=== PATIENT | female | born 1995 | race Asian ===

== ENCOUNTER 2023-12-04 14:46 | Inpatient (IN) | payer OTHER ==
[~2023-12-04] VITALS: Ht 162.6 cm; Wt 103.4 kg
[2023-12-04 15:24] VITALS: BP 123/62; PULSE 62; RESP 20; TEMP 98.4; O2SAT 98
[2023-12-04 15:25] VITALS: O2SAT 98
[2023-12-04] MEDS: NACL 0.9% 1,000 ML IV ONE ×2 (15:50→22:40)
[2023-12-04] MEDS: ONDANSETRON 4 MG/2 ML VIAL IVP ONE (15:51)
[2023-12-04] MEDS: KETOROLAC 30 MG/ML VIAL IVP ONE (15:51)
[2023-12-04] MEDS: MORPHINE SULFATE 4 MG/ML SYR IVP ONE ×2 (15:51→18:26)
[2023-12-04 15:55] LABS: BASOPHILS % (AUTO) 0.3 % (0.0-2.0); EOSINOPHILS # (AUTO) 0.2 K/uL (0-0.4); EOSINOPHILS % (AUTO) 1.1 % (0.0-4.0); HEMATOCRIT 38.9 % (36-48); HEMOGLOBIN 13.6 g/dL (12.0-16.0); LYMPHOCYTES # (AUTO) 1.9 K/uL (2.5-16.5); LYMPHOCYTES % (AUTO) 13.1 % (20.5-51.1); MEAN CORPUSCULAR HEMOGLOBIN 30 pg (27-31); MEAN CORPUSCULAR HGB CONC 35 g/dL (33-37); MEAN CORPUSCULAR VOLUME 84.6 fL (80-94); MONOCYTES # (AUTO) 0.6 K/uL (0.8-1.0); MONOCYTES % (AUTO) 4.3 % (1.7-9.3); NEUTROPHILS # (AUTO) 11.6 K/uL (1.8-7.7); NEUTROPHILS % (AUTO) 81.2 % (42.2-75.2); PLATELET COUNT (AUTO) 290 K/uL (140-450); RED BLOOD CELL COUNT(AUTO) 4.59 MIL/uL (4.20-5.40); RED CELL DISTRIBUTION WIDTH 14.3 % (11.6-13.7); WHITE BLOOD COUNT (AUTO) 14.3 K/uL (4.8-10.8)
[2023-12-04 16:12] LABS: ANION GAP 11.3 (8-16); CALCIUM 8.7 mg/dL (8.5-10.1); CARBON DIOXIDE 28.1 mmol/L (21-32); CREATININE 0.7 mg/dL (0.6-1.3); POTASSIUM 3.4 mmol/L (3.5-5.1)
[2023-12-04 16:16] LABS: ALBUMIN 3.7 g/dL (3.4-5.0); BILIRUBIN,DIRECT 0.1 mg/dL (0.0-0.3); TOTAL BILIRUBIN 0.4 mg/dL (0.0-1.0); TOTAL PROTEIN, SERUM 7.8 g/dL (6.4-8.2)
[2023-12-04 17:12] LABS: APPEARANCE,URINE CLEAR (CLEAR); BILIRUBIN,URINE NEGATIVE (NEGATIVE); BLOOD, URINE 2+ (NEGATIVE); COLOR,URINE YELLOW (YELLOW); LEUKOCYTE ESTERASE ,URINE NEGATIVE (NEGATIVE); NITRITE, URINE NEGATIVE (NEGATIVE); PROTEIN,URINE NEGATIVE (NEGATIVE); UGLUCOSE NEGATIVE (NEGATIVE); UROBILINOGEN,URINE 0.2 EU/dL (0.2 - 1)
[2023-12-04 17:27] LABS: BACTERIA,URINE FEW /HPF (None Seen); SQUAMOUS EPITHELIAL CELL,UR 0-3 (FEW) /LPF (0-3 (FEW)); WBC,URINE 0-5 /HPF (0-5)
[2023-12-04 17:45] VITALS: O2SAT 98
[2023-12-04] MEDS ORDERED: AMPICILLIN/SULBACTAM 3 GM VIAL ONE (18:15)
[2023-12-04] MEDS: NACL 0.9% 1,000 ML IV SCH (18:20)
[2023-12-04] MEDS: AMPICILLIN/SULBACTAM 3 GM in NACL 0.9% 100 ML IV ONE (18:26)
[2023-12-04] MEDS ORDERED: MORPHINE SULFATE 2 MG/ML SYR IVP PRN (19:05)
[2023-12-04] MEDS ORDERED: POLYETHYLENE GLYCOL 17 GM/PKT PO PRN (19:05)
[2023-12-04] MEDS ORDERED: MAG SULF 2000 MG/WATER PREMIX 50 ML IV PRN (19:05)
[2023-12-04] MEDS ORDERED: MELATONIN 3 MG TAB PO PRN (19:05)
[2023-12-04] MEDS ORDERED: HYDROcodone/APAP 5/325 MG 1 TAB TAB PO PRN (19:05)
[2023-12-04] MEDS ORDERED: ONDANSETRON 4 MG/2 ML VIAL IVP PRN (19:05)
[2023-12-04] MEDS ORDERED: metroNIDAZOLE 500 MG/NS PREMIX 100 ML IV SCH (19:27)
[2023-12-04 20:13] VITALS: O2SAT 98
[2023-12-04] MEDS: NACL 0.45% 1,000 ML IV SCH (20:13)
[2023-12-04 21:00] VITALS: BP 114/62; PULSE 93; RESP 20; TEMP 98.4; O2SAT 100
[2023-12-04] MEDS: DOXYCYCLINE 100 MG VIAL IV ONE (21:11)
[2023-12-04] MEDS: DOXYCYCLINE 100 MG in DEXTROSE 5% 100 ML IV SCH (21:15)
[2023-12-04 22:00] VITALS: O2SAT 100
[2023-12-04] MEDS: POTASSIUM CHLORIDE 10 MEQ TABER PO PRN (23:31)
[2023-12-05 04:00] VITALS: BP 116/54; PULSE 96; RESP 20; TEMP 98.8; O2SAT 98
[2023-12-05] MEDS: metroNIDAZOLE 500 MG/NS PREMIX 100 ML IV SCH (04:54)
[2023-12-05 07:32] LABS: BASOPHILS % (AUTO) 0.3 % (0.0-2.0); EOSINOPHILS # (AUTO) 0.1 K/uL (0-0.4); HEMATOCRIT 34.6 % (36-48); HEMOGLOBIN 12.1 g/dL (12.0-16.0); LYMPHOCYTES # (AUTO) 2.4 K/uL (2.5-16.5); LYMPHOCYTES % (AUTO) 15.8 % (20.5-51.1); MEAN CORPUSCULAR HEMOGLOBIN 30 pg (27-31); MEAN CORPUSCULAR HGB CONC 35 g/dL (33-37); MEAN CORPUSCULAR VOLUME 85.8 fL (80-94); MONOCYTES # (AUTO) 0.7 K/uL (0.8-1.0); MONOCYTES % (AUTO) 4.9 % (1.7-9.3); NEUTROPHILS # (AUTO) 11.6 K/uL (1.8-7.7); PLATELET COUNT (AUTO) 262 K/uL (140-450); RED BLOOD CELL COUNT(AUTO) 4.03 MIL/uL (4.20-5.40); WHITE BLOOD COUNT (AUTO) 14.9 K/uL (4.8-10.8)
[2023-12-05 07:49] LABS: ALBUMIN 2.8 g/dL (3.4-5.0); CARBON DIOXIDE 26.4 mmol/L (21-32); CREATININE 0.7 mg/dL (0.6-1.3); MAGNESIUM 1.9 mg/dL (1.8-2.4); PHOSPHORUS 3.4 mg/dL (2.5-4.9); POTASSIUM 4.4 mmol/L (3.5-5.1); TOTAL BILIRUBIN 0.6 mg/dL (0.0-1.0); TOTAL PROTEIN, SERUM 6.5 g/dL (6.4-8.2)
[2023-12-05] MEDS: DOXYCYCLINE 100 MG in DEXTROSE 5% 100 ML IV SCH (09:08)
[2023-12-05] MEDS: ACETAMINOPHEN 325 MG TAB PO PRN (11:00)
[2023-12-05 12:00] VITALS: BP 110/47; PULSE 80; RESP 16; TEMP 97.7; O2SAT 88
[2023-12-05] MEDS ORDERED: DOXY-690 PO (14:15)
[2023-12-05] MEDS ORDERED: AMOX-999 PO (14:15)
[2023-12-05 14:45] VITALS: BP 110/47; PULSE 80; RESP 16; TEMP 97.7
== END 2023-12-05 15:40 | disposition home or self-care (01) | DRG 872 ==
LOC: MED 14:46 → MTU 19:08
PROVIDERS: ADMIT Family Medicine; ATTEND Family Medicine
DX: A41.9 Sepsis, unspecified organism (principal); N70.93 Salpingitis and oophoritis, unspecified
CPT/HCPCS: 36415; 76830; 80048; 80053; 80076; 81001; 83605; 83690; 83735; 84100; 84703; 85025; 87040; 87081; 87491; 96361; 96365; 96375; 96376; 99285; J0295; J0696; J1885; J2270; J2405; J3490; J7060; Q0092; Q9967